=== PATIENT | male | born 1985 ===

== ENCOUNTER 2017-11-08 16:47 | Emergency (ER) | payer OTHER ==
[2017-11-08 17:10] VITALS: BP 130/69; PULSE 75; RESP 18; TEMP 98.3; O2SAT 100
--- NOTE | 2017-11-08 17:31 | ED PDOC ---
Lower Extremity Pain/Injury Time Seen by Provider: 11/08/17 17:11 Chief Complaint (Nursing): Lower Extremity Problem/Injury Chief Complaint (Provider): Right Foot Injury History Per: Patient, Other (Patient's girlfriend at bedside speaks nigerien and is translating for patient in Hungarian) Onset/Duration Of Symptoms: Days (1x) Current Symptoms Are (Timing): Still Present Additional Complaint(s): 31 year old male with no significant past medical history who presents to the emergency department complaining of a right foot injury sustained yesterday. 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 Patient can ambulate but with some difficulty. No pain meds taken since time of injury yesterday. No numbness or tingling to affected area. PMD: none Past Medical History Reviewed: Historical Data, Nursing Documentation, Vital Signs Vital Signs: Last Vital Signs Temp 98.3 F 11/08/17 17:08 Pulse 75 11/08/17 17:08 Resp 18 11/08/17 17:08 BP 130/69 11/08/17 17:08 Pulse Ox 100 11/08/17 17:08 - Medical History PMH: No Chronic Diseases - Surgical History Surgical History: No Surg Hx - Family History Family History: States: No Known Family Hx - Living Arrangements Living Arrangements: With Family - Social History Current smoker - smoking cessation education provided: No Alcohol: Social Drugs: Denies - Home Medications Home Medications: Ambulatory Orders Medication Instructions Recorded Ibuprofen [Motrin Tab] 800 mg PO Q8 PRN #20 tab 11/08/17 - Allergies Allergies/Adverse Reactions: Allergies Allergy/AdvReac Type Severity Reaction Status Date / Time No Known Allergies Allergy Verified 11/08/17 17:08 Review of Systems ROS Statement: Except As Marked, All Systems Reviewed And Found Negative Musculoskeletal: Positive for: Foot Pain (right foot injury sustained yesterday at work ) Physical Exam - Reviewed Nursing Documentation Reviewed: Yes Vital Signs Reviewed: Yes - Physical Exam Appears: Positive for: Well, Non-toxic Skin: Positive for: Normal Color. Negative for: Rash Eye Exam: Positive for: Normal appearance Extremity: Positive for: Tenderness (Ecchymosis, erythema and tenderness to the medial right foot. Point tenderness to the distal first metatarsal of right foot with decreased ROM of same toe, toenail intact with no discoloration). Negative for: Deformity Neurologic/Psych: Positive for: Alert, Oriented - ECG O2 Sat by Pulse Oximetry: 100 (RA) Pulse Ox Interpretation: Normal - Other Rad Right foot x-ray X-Ray: Interpreted by Me, Viewed By Me X-Ray Interpretation: no fx, no dis Medical Decision Making Medical Decision Making: Time: 1710 Initial Impression; 31 y/o male with right foot injury Initial Plan: --Tylenol 325 mg tab 975mg PO --Motrin Tab 600mg PO --Foot right 3 views [Rad] Patient is aware of x-ray results. Crutches declined. Patient given prescription for Motrin and was referred to podiatry clinic for follow up. Scribe Attestation: Documented by Renuka Woodruff, acting as a scribe for Dolores Castillo PA-C Provider Scribe Attestation: All medical record entries made by the Scribe were at my direction and personally dictated by me. I have reviewed the chart and agree that the record accurately reflects my personal performance of the history, physical exam, medical decision making, and the department course for this patient. I have also personally directed, reviewed, and agree with the discharge instructions and disposition. Procedures - Splinting Location: right foot Pre-Made Type: braydon wrap and ortho shoe to right foot Pre-Proc Neuro Vasc Exam: normal Post-Proc Neuro Vasc Exam: normal Disposition - Clinical Impression Clinical Impression: Foot contusion - Patient ED Disposition Is Patient to be Admitted: No Counseled Patient/Family Regarding: Studies Performed, Diagnosis, Need For Followup, Rx Given - Disposition Referrals: Podiatry Clinic [Outside] Disposition: Routine/Home Disposition Time: 19:04 Condition: STABLE Additional Instructions: Ice, rest and elevate affected area. Take prescription meds as directed as needed for pain. Follow-up with podiatry clinic in 2-3 days. Prescriptions: Ibuprofen [Motrin Tab] 800 mg PO Q8 PRN #20 tab PRN Reason: Pain, Moderate (4-7) Instructions: Contusion (DC), Foot Sprain (DC) Forms: [employer] (Hungarian), [facility] ED School/Work Excuse Print Language: TANZANIAN
--- NOTE | 2017-11-09 09:11 | RAD ---
PROCEDURE: Right Foot Radiographs. HISTORY: Trauma COMPARISON: None. FINDINGS: BONES: Bone alignment and mineralization are normal. There is no acute displaced fracture or bone destruction. JOINTS: Normal. SOFT TISSUES: Normal. OTHER FINDINGS: None. IMPRESSION: No acute fracture or dislocation.
== END 2017-11-08 19:08 | disposition home or self-care (01) ==
LOC: H.ER 16:47
DX: S90.31XA Contusion of right foot, initial encounter (principal); W23.0XXA Caught, crushed, jammed, or pinched between moving objects, initial encounter; Y99.0 Civilian activity done for income or pay